=== PATIENT | female | born 1935 | race Caucasian/White ===

== ENCOUNTER 2017-08-03 17:33 | Emergency (ER) | payer MEDICARE, BC ==
[~2017-08-03] VITALS: Ht 175.3 cm; Wt 67.6 kg
--- NOTE | 2017-08-03 17:44 | NUR ---
DR BUSTOS AT BEDSIDE
[2017-08-03] MEDS ORDERED: MORPHINE SULFATE INJ 4 MG/ML DISP.SYRIN ONE ×3 (17:53→23:48)
--- NOTE | 2017-08-03 17:58 | NUR ---
RECIEVED PATIENT TO ED BED 14. PT CAME FROM [facility] VIA 911 FOR LEFT HIP PAIN S/P FALL. PER REPORT PT WAS STANDING IN THE HALLWAY WHEN A MARKETING FINANCE SPECIALIST WALKED INTO HER THAT CAUSE HER TO FALL. NO KO. PT GOT 2 ROUNDS OF MORPHINE 2MG AND ZOFRAN 4MG IN THE FIELD. ALL NEEDS ARE ATTENDED, PENDING ER MD GIBSON
[2017-08-03 17:59] LABS: BASOPHILS # (AUTO) 0.1 /CMM (0.0-0.2); HEMATOCRIT 37 % (33-45); HEMOGLOBIN 12.3 g/dL (11.5-14.8); LYMPHOCYTES # (AUTO) 1.5 /CMM (0.8-4.8); LYMPHOCYTES % (AUTO) 21.5 % (20.0-44.0); MEAN CORPUSCULAR HGB CONC 34 g/dl (31.0-36.0); MEAN CORPUSCULAR VOLUME 87 fL (82-100); MONOCYTES # (AUTO) 0.8 /CMM (0.1-1.30); MONOCYTES % (AUTO) 11.7 % (2.0-12.0); NEUTROPHILS # (AUTO) 4.2 /CMM (1.8-8.9); NEUTROPHILS % (AUTO) 58.8 % (43.0-81.0); PLATELET COUNT (AUTO) 254 /CMM (150-450); RDW COEFFICIENT OF VARIATION 15.3 (11.5-15.0); RED BLOOD CELL COUNT(AUTO) 4.22 MIL/uL (4.0-5.2); WHITE BLOOD COUNT (AUTO) 7.2 K/uL (4.3-11.0)
[2017-08-03] MEDS: MORPHINE SULFATE INJ 2 MG/ML DISP.SYRIN IV ONE ×3 (18:00→23:54)
[2017-08-03 18:22] LABS: INR 0.93 (0.87-1.13)
[2017-08-03 18:28] LABS: ALANINE AMINOTRANSFERASE 30 U/L (12-78); ALBUMIN 3.6 g/dL (3.4-5.0); ALKALINE PHOSPHATASE 125 U/L (46-116); ASPARTATE AMINOTRANSFERASE 22 U/L (15-37); BILIRUBIN,DIRECT 0.1 mg/dL (0.0-0.2); BILIRUBIN,TOTAL 0.4 mg/dL (0.2-1.0); CALCIUM, SERUM 9.3 mg/dL (8.5-10.1); CARBON DIOXIDE 30 mmol/L (21-32); CHLORIDE 105 mmol/L (98-107); CREATININE 0.6 mg/dL (0.6-1.3); GLUCOSE 89 mg/dL (74-106); SODIUM SERUM 142 mmol/L (136-145); TOTAL PROTEIN, SERUM 6.5 g/dL (6.4-8.2); UREA NITROGEN, BLOOD 15 mg/dL (7-18)
--- NOTE | 2017-08-03 18:30 | NUR ---
CALLED [facility] SPOKE WITH [facility], THE HOSPITAL IS CLOSED TO ALL TRANSFERS AT THE MOMENT.
--- NOTE | 2017-08-03 18:41 | NUR ---
CALLED [facility], THEY ARE CLOSED TO ALL TRANSFERS WELL.
--- NOTE | 2017-08-03 19:10 | NUR ---
16 FR brown catheter inserted per sterile protocal. pt tolerated procedure.
--- NOTE | 2017-08-03 19:13 | NUR ---
RECEIVED REPORT FROM DANIE ORR FOR DONNA.
--- NOTE | 2017-08-03 19:46 | NUR ---
CALLED [facility] AT [facility], SHE WILL CALL US BACK WITH BED AVAILABILITY.
--- NOTE | 2017-08-03 20:01 | NUR ---
DR. TOMLIN AT BEDSIDE SPEAKING TO PT/ FAMILY REGARIDNG POC
--- NOTE | 2017-08-03 20:20 | NUR ---
CALLED NURSING PROFESSOR OF THEOLOGY GIANA AT [facility], FAXED OVER [facility]. STILL AWAITING BED ASIGNMENT.
[2017-08-03] MEDS ORDERED: ONDANSETRON HCL/PF 4 MG/2 ML VIAL ONE ×2 (20:31→23:48)
[2017-08-03] MEDS: ONDANSETRON HCL/PF - ER 4 MG/2 ML VIAL IV ONE (20:37)
--- NOTE | 2017-08-03 21:21 | NUR ---
KIM [phone] ANKIT [phone]
--- NOTE | 2017-08-03 21:42 | NUR ---
Patient is resting comfortably in bed with eyes closed. Easily aroused. VSS
--- NOTE | 2017-08-03 22:35 | NUR ---
CALL FROM [facility] HELENA [facility]. BED [id number]
--- NOTE | 2017-08-03 23:25 | NUR ---
GIANA FROM [facility] CALLED PATIENT WILL BE GOING TO [address] TO GIVE REPORT IS
[2017-08-03 23:33] VITALS: BP 142/76
--- NOTE | 2017-08-03 23:43 | NUR ---
REPORT GIVEN TO [facility] NURSE BOLDEN FOR BED [id number]
--- NOTE | 2017-08-03 23:44 | NUR ---
REPORT GIVEN TO DANIE HO FROM [facility] FOR [facility]. PT AWARE SHE WILL BE TRANSFERRED VIA GURNEY. PT VSS. PT IV INTACT AND PATENT. NO S/S INFECTION OR INFILTRATION. PT WITH ALL PERSONAL BELONGINGS. PER KIZZY TOOK OVER CARE/
[2017-08-03] MEDS: ONDANSETRON 4 MG TAB.RAPDIS SL ONE (23:54)
--- NOTE | 2017-08-03 23:54 | NUR ---
PT MEDICATED ORDERED PER GRACE.
== END 2017-08-04 00:15 | disposition short-term general hospital (02) ==
LOC: ER 17:42
DX: S72.092A Other fracture of head and neck of left femur, initial encounter for closed fracture (principal); I11.0 Hypertensive heart disease with heart failure; I50.9 Heart failure, unspecified; F03.90 Unspecified dementia, unspecified severity, without behavioral disturbance, psychotic disturbance, mood disturbance, and anxiety; J44.9 Chronic obstructive pulmonary disease, unspecified; W18.39XA Other fall on same level, initial encounter; Y93.89 Activity, other specified; Y92.89 Other specified places as the place of occurrence of the external cause; Y99.8 Other external cause status
CPT/HCPCS: 36415; 71045-TC; 73502; 80048-TC; 80076-TC; 85025-TC; 85730-TC; A4606; J2270; J2405; Z7610